=== PATIENT | male | born 1965 | race African-American/Black ===

== ENCOUNTER → 2021-02-09 | Day surgery (SDC) | payer OTHER ==
[~2021-02-09] VITALS: Ht 185.4 cm; Wt 125.4 kg
[~2021-02-09] MED LIST: ACET325T21 PO; AMLO-186 PO; IBUP-1007 PO; IV RINGERS,LACTATED 1000ML 1,000 ML IV SCH; LIDOCAINE 2% PF 5 ML VIAL. ONE; LISI1TAB39 PO; PROPOFOL 10 MG/ML (20ML) VIAL. IV ONE; PYRI100T9 PO
[2021-02-09 06:12] VITALS: BP 153/96
[2021-02-09 07:45] VITALS: BP 136/97
--- NOTE | 2021-02-09 13:11 | CONS ---
DATE OF CONSULTATION: 02/09/2021 GASTROINTESTINAL CONSULTATION REFERRING PHYSICIAN: Arjun Rush REASON FOR CONSULTATION: Colorectal screening and positive family history of colon cancer. HISTORY OF PRESENT ILLNESS: A 55-year-old male whose past medical history is significant for hypertension, seen for screening colon. Bowel habits are regular without diarrhea or constipation. There has been no melena and/or hematochezia. Weight and appetite are stable. Family history is positive for colon cancer with three uncles who have passed in their 40s and 50s from this. This is his first colon exam. He is otherwise without additional complaints. PAST MEDICAL HISTORY: Hypertension, osteoarthrosis. ALLERGIES: None. MEDICATIONS: Include amlodipine 5 mg daily, lisinopril/hydrochlorothiazide 1 daily, vitamin B6 daily. FAMILY AND SOCIAL HISTORY: He is incarcerated. Does not drink or smoke. PAST SURGICAL HISTORY: Noncontributory. REVIEW OF SYSTEMS: HEENT: There is no decreased hearing or visual acuity issues. CARDIAC: There is a history of hypertension. PULMONARY: No shortness of breath, productive cough, asthma. RENAL: No dysuria, frequency, hematuria. MUSCULOSKELETAL: History of osteoarthrosis. DERMATOLOGIC: No skin rashes or pruritus. HEMATOLOGIC: No bleeding, bruising coagulopathy. GASTROINTESTINAL: See history of present illness. PHYSICAL EXAMINATION: GENERAL: Reveals a well-developed, well-nourished male. VITAL SIGNS: Temp is 97.2, pulse 97, respiratory rate is 14. LUNGS: Clear. CARDIOVASCULAR: Reveals an S1, S2, without S3, S4 or appreciable murmur. ABDOMEN: Reveals a soft abdomen, normal bowel sounds, without appreciable hepatosplenomegaly. EXTREMITIES: Reveals no cyanosis, clubbing or edema. IMPRESSION: Colorectal screening with positive family history of colon cancer is recommended at this time. Risks and benefits of procedure including the risk of hemorrhage and perforation have been discussed with the patient and he is willing to proceed at this time. I would like to thank for asking us to consult and participate in this patient's care. KATY DR: Masoud TID: [id number]
--- NOTE | 2021-02-14 09:07 | PATHOLOGY ---
[facility] Accession Number: [id number] . 01 Material submitted: . sigmoid colon - SIGMOID POLYP BIOPSY . 01 Clinical history: . CRC SCREENING COLONOSCOPY . 02 Diagnosis: Colon biopsies, sigmoid polyps: - Hyperplastic polyps. (JPM:[facility]; 02/14/2021) S 02/14/2021 0847 Local . 02 Comment: There are no adenomatous changes or evidence of malignancy. (JPM:[facility]; 02/14/2021) . 02 Electronically signed: . Walker Ryder MD, Pathologist NPI- [id number] . 01 Gross description: . The specimen is received in formalin, labeled "Fabrizio Ba, sigmoid polyp biopsy". Received is a segment of pale carrera tissue measuring 1.0 cm in maximum dimensions. The specimen is submitted entirely in cassette A1. ([facility]; 02/11/2021) QA/[facility] 02/11/2021 1240 Local . 02 Pathologist provided ICD-10: K63.5 . 02 CPT . 280796 Specimen Comment: A courtesy copy of this report has been sent to [phone] Specimen Comment: Report sent to Performed at: 01 [facility] [address], [place] [id number] MD Deshaun Keller MD Phone: [phone] Performed at: 02 [facility] [address] [place], [place] [id number] MD Walker Ryder MD Phone: [phone]
== END | disposition home or self-care (01) ==
LOC: ENDOS 06:18 → EEVIPCON 07:00
PROVIDERS: ATTEND Internal Medicine Gastroenterology
DX: Z12.11 Encounter for screening for malignant neoplasm of colon (principal); K64.0 First degree hemorrhoids; K63.5 Polyp of colon; K63.89 Other specified diseases of intestine; I10 Essential (primary) hypertension; M19.90 Unspecified osteoarthritis, unspecified site; E78.00 Pure hypercholesterolemia, unspecified; Z80.0 Family history of malignant neoplasm of digestive organs; Z79.899 Other long term (current) drug therapy; Z98.890 Other specified postprocedural states
CPT/HCPCS: 45380; J2704